=== PATIENT | male | born 1990 | race African-American/Black ===

== ENCOUNTER 2018-04-06 19:09 | Emergency (ER) | payer SELFPAY ==
[2018-04-06 19:58] LABS: #Basophils 0.1 thou/uL (0.0-0.2); #Eosinphils 0.4 thou/uL (0.0-0.7); #Lymphocytes 3.2 thou/uL (1.20-3.40); #Monocytes 0.8 thou/uL (0.11-0.59); #Neutrophils 5.1 thou/uL (1.40-6.50); %Basophils 1.1 % (0.0-1.0); %Eosinophils 3.8 % (0.0-10.0); %Lymphocytes 33.5 % (21.0-51.0); %Monocytes 8.6 % (0.0-10.0); Mean Corpuscular HGB CONC 32.7 g/dL (32.0-36.0); Mean Corpuscular Volume 94.8 fL (78.0-98.0); Platelet Count 285 thou/uL (130-400); RBC Distribution Width 11.2 % (11.5-14.5); Red Blood Cell (RBC) Count 4.53 mill/uL (4.70-6.10); White Blood Cell (WBC) Count 9.6 thou/uL (4.8-10.8)
[2018-04-06 20:18] LABS: ALT (SGPT) 47 U/L (8-55); AST (SGOT) 36 U/L (5-34); Albumin 4.1 g/dL (3.5-5.0); Alkaline Phosphatase 69 U/L (40-150); Anion Gap 16 mmol/L (10-20); BUN (Urea Nitrogen) 11 mg/dL (8.9-20.6); Bilirubin, Total 0.5 mg/dL (0.2-1.2); Calc. Creatinine Clearance 0 mL/min (70-130); Calcium 9.7 mg/dL (7.8-10.44); Carbon Dioxide 26 mmol/L (22-29); Chloride 103 mmol/L (98-107); Estimated GFR-MDRD 78; Glucose 89 mg/dL (70-105); Protein, Total 8.1 g/dL (6.0-8.3); Sodium 141 mmol/L (136-145)
== END 2018-04-06 22:02 | disposition home or self-care (01) ==
LOC: ERS 19:09
DX: K64.9 Unspecified hemorrhoids (principal); F17.220 Nicotine dependence, chewing tobacco, uncomplicated; F17.290 Nicotine dependence, other tobacco product, uncomplicated
CPT/HCPCS: 36415; 80053; 85025; 86850; 86900; 86901; 99283

== ENCOUNTER 2018-04-27 15:59 | Emergency (ER) | payer SELFPAY | END 2018-04-27 18:33 | disposition home or self-care (01) | LOC: ERS 15:59 | DX: J30.9 Allergic rhinitis, unspecified (principal); J06.9 Acute upper respiratory infection, unspecified; F17.220 Nicotine dependence, chewing tobacco, uncomplicated | CPT/HCPCS: 99283 ==

== ENCOUNTER 2018-04-30 21:18 | Emergency (ER) | payer SELFPAY | END 2018-04-30 21:47 | disposition home or self-care (01) | LOC: ERS 21:18 | DX: B34.9 Viral infection, unspecified (principal); F17.220 Nicotine dependence, chewing tobacco, uncomplicated; Z79.899 Other long term (current) drug therapy | CPT/HCPCS: 99283 ==

== ENCOUNTER 2018-05-18 20:48 | Emergency (ER) | payer SELFPAY ==
--- NOTE | 2018-05-18 22:34 | RAD ---
LEFT SHOULDER THREE VIEWS: History: Pain. Comparison: None. FINDINGS: There appears to be a fracture of the anterior and inferior glenoid, seen both on the AP view and the lateral radiograph. The acromioclavicular alignment is normal. Visualized ribs are normal. IMPRESSION: Concern for a Bankart fracture anterior inferior glenoid. MRI recommended if clinically warranted. Re commend for history of anterior shoulder dislocation. POS: HOME
== END 2018-05-18 23:15 | disposition home or self-care (01) ==
LOC: ERS 20:48
DX: S42.142A Displaced fracture of glenoid cavity of scapula, left shoulder, initial encounter for closed fracture (principal); F17.290 Nicotine dependence, other tobacco product, uncomplicated; X50.0XXA Overexertion from strenuous movement or load, initial encounter